=== PATIENT | male | born 1945 | race Asian ===

== ENCOUNTER 2019-04-02 13:57 | Outpatient (CLI) | payer OTHER | END 2019-04-02 19:39 | disposition home or self-care (01) | LOC: RAD 13:57 | DX: M47.817 Spondylosis without myelopathy or radiculopathy, lumbosacral region (principal) ==

== ENCOUNTER 2019-04-24 08:36 | Day surgery (SDC) | payer OTHER | END 2019-04-24 11:55 | disposition home or self-care (01) | LOC: OR 08:36 | PROC: 3E0T3TZ Introduction of Destructive Agent into Peripheral Nerves and Plexi, Percutaneous Approach (ICD-10-PCS; principal; 2019-04-24) | PROC: BR16YZZ Fluoroscopy of Lumbar Facet Joint(s) using Other Contrast (ICD-10-PCS; 2019-04-24) | DX: M47.817 Spondylosis without myelopathy or radiculopathy, lumbosacral region (principal) | CPT/HCPCS: J2001 ==

== ENCOUNTER 2019-06-11 08:41 | Day surgery (SDC) | payer OTHER ==
[~2019-06-11] VITALS: Ht 30.5 cm; Wt 0.5 kg
== END 2019-06-11 10:30 | disposition home or self-care (01) ==
LOC: OR 08:41
PROC: 3E0T3TZ Introduction of Destructive Agent into Peripheral Nerves and Plexi, Percutaneous Approach (ICD-10-PCS; principal; 2019-06-11)
PROC: BR16YZZ Fluoroscopy of Lumbar Facet Joint(s) using Other Contrast (ICD-10-PCS; 2019-06-11)
DX: M47.817 Spondylosis without myelopathy or radiculopathy, lumbosacral region (principal)
CPT/HCPCS: J2001

== ENCOUNTER 2020-07-13 11:21 | Outpatient (CLI) | payer OTHER | END 2020-07-13 21:28 | disposition home or self-care (01) | LOC: MRI 11:21 | DX: M54.16 Radiculopathy, lumbar region (principal) ==